=== PATIENT | male | born 1960 | race Two or more races ===

== ENCOUNTER 2023-07-03 09:45 | Emergency (ER) | payer OTHER, MEDICAID ==
[~2023-07-03] VITALS: Ht 182.9 cm; Wt 94.5 kg
[2023-07-03 11:08] LABS: Basophils # (auto) 0 10 ^3/uL (0-0.2); Basophils % (auto) 0.4 % (0.0-2.0); Eosinophils # (auto) 0.2 10 ^3/uL (0-0.8); Eosinophils % (auto) 2.2 % (0.0-7.0); Hematocrit 49.6 % (41.0-53.0); Hemoglobin 16.9 g/dL (13.5-17.5); Lymphocytes # (auto) 1.9 10 ^3/uL (0.4-5.4); Lymphocytes % (auto) 27.9 % (10.0-50.0); Mean Corpuscular Hemoglobin 31.2 pg (28.0-32.0); Mean Corpuscular Hgb Conc. 34.1 g/dL (32.0-36.0); Mean Corpuscular Volume 91.5 fL (80.0-100.0); Monocytes # (auto) 0.9 10 ^3/uL (0-1.3); Monocytes % (auto) 13.1 % (0.0-12.0); Neutrophils # (auto) 3.8 10 ^3/uL (1.6-8.6); Neutrophils % (auto) 56.4 % (37.0-80.0); Red Blood Cells 5.42 10^6/uL (4.5-5.90); Red Cell Distribution Width 13.6 % (11.8-14.3); White Blood Cell 6.8 10^3/uL (4.4-10.8)
[2023-07-03 11:26] LABS: INR 1.04 (0.9-1.15); Partial Thromboplastin Time 27.7 SEC (24.5-34.5); Prothrombin Time 10.9 sec (9.3-11.8)
[2023-07-03 11:53] LABS: Alanine Aminotransferase 19 U/L (7-40); Albumin 3.5 g/dL (3.2-4.8); Alkaline Phosphatase 46 U/L (46-116); Anion Gap 12 (5-15); Aspartate Aminotransferase 8 U/L (13-40); BUN/Creatinine Ratio 15.8 (10.0-20.0); Blood Urea Nitrogen 9 mg/dL (9-23); Calcium 6.8 mg/dL (8.5-10.1); Carbon Dioxide 21 mmol/L (20-30); Chloride 107 mmol/L (98-107); Glucose 62 mg/dL (74-106); Sodium 140 mmol/L (136-145)
[2023-07-03 11:54] LABS: Bilirubin, Total 0.5 mg/dL (0.2-1.0)
[2023-07-03 13:13] VITALS: BP 163/91; PULSE 67; RESP 16; TEMP 98.1; O2SAT 98
== END 2023-07-03 13:13 | disposition home or self-care (01) ==
LOC: ER 09:45 → EDBD 09:45 → ER 13:13
DX: R07.89 Other chest pain (principal); I10 Essential (primary) hypertension; I25.2 Old myocardial infarction
CPT/HCPCS: 36415; 71045; 80053; 84484; 85025; 85379; 85610; 85730; 93005